=== PATIENT | male | born 1950 ===

== ENCOUNTER 2018-04-29 10:01 | Day surgery (SDC) | payer BC ==
[2018-04-29] MEDS ORDERED: Midazolam 2 MG/2 ML VIAL ONE (11:07)
[2018-04-29] MEDS ORDERED: Propofol 10 mg/ml Inj (20 ML) ONE (11:08)
[2018-04-29] MEDS ORDERED: Ciprofloxacin 400mg/200ml D5W 400 MG/200 ML BAG IVPB ONE (11:13)
[2018-04-29] MEDS ORDERED: Bacitracin Ointment 30 GM TUBE ONE (11:41)
--- NOTE | 2018-04-29 11:50 | PCM.SURG1 ---
Surgeon's Initial Post Op Note - Surgeon's Notes Surgeon: joe Other [employer] Machine Operator: none Type of Anesthesia: IV Sedation Anesthesia Administered By: Pre-Operative Diagnosis: meatal stenosis.left ureteral stent Operative Findings: bph.meatal stenosis.left ureteral stent. Post-Operative Diagnosis: bph meatal stenosis.left ureteral stent. Operation Performed: meatotomy.cystoscopy left ureteral stent removal. Specimen/Specimens Removed: left ureteral stent. Estimated Blood Loss: EBL {In ML}: 0 Blood Products Given: N/A Drains Used: No Drains Post-Op Condition: Good Date of Surgery/Procedure: 04/29/18 Time of Surgery/Procedure: 11:53
[2018-04-29 12:50] VITALS: BP 130/72; PULSE 80; RESP 18; TEMP 97; O2SAT 100
--- NOTE | 2018-04-30 02:35 | OP ---
PROCEDURE DATE: 04/29/2018 PREOPERATIVE DIAGNOSES: Meatal stenosis, left ureteral stent. POSTOPERATIVE DIAGNOSES: Benign prostatic hypertrophy, meatal stenosis, left ureteral stent. OPERATION: Meatotomy, cystoscopy, stent removal. SURGEON: Tk Mccarthy MD FINDINGS: Good bladder capacity. No tumors or stones were observed. Moderate trabeculated bladder. Ureteral orifices normally placed and in configuration. Enlarged prostate gland. A slight elongated prostatic urethra. Membranous and pendulous urethra normal. Meatal stenosis noted. TECHNIQUE: This patient was placed in lithotomy position. The external genitalia were prepped and draped in the usual sterile fashion. A meatotomy was performed using a straight clamp which was placed into the inferior angle of the meatus. Then incision was performed widening the meatus. Then a #22 panendoscope was introduced in the bladder under direct vision. Findings as above. After this was accomplished using a biopsy forceps, the stent was removed slowly without difficulties. The stent was covered with encrustation. The procedure was terminated. The patient withstood the procedure well and returned to the recovery room in satisfactory condition. Tk Mccarthy MD
== END 2018-04-29 13:01 | disposition home or self-care (01) ==
LOC: C.SDS 10:01
PROVIDERS: ATTEND Urology
DX: N35.911 Unspecified urethral stricture, male, meatal (principal); N40.0 Benign prostatic hyperplasia without lower urinary tract symptoms; Z46.6 Encounter for fitting and adjustment of urinary device
CPT/HCPCS: 52290; 82948; J0744